=== PATIENT | female | born 2000 | race Hispanic/Latino ===

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

== ENCOUNTER 2025-09-16 12:40 | Emergency (ER) | payer BC ==
[~2025-09-16] VITALS: Ht 152.4 cm; Wt 99.8 kg
[2025-09-16 12:45] VITALS: TEMP 98.8
--- NOTE | 2025-09-16 12:53 | ERN ---
ED Note History of Present Illness Stated Complaint: N/V Chief Complaint: Nausea,Vomiting,Diarrhea Time Seen by MD: 12:45 Dictation: IN HIS A 25-YEAR-OLD FEMALE HERE WITH HER MOTHER WITH COMPLAINTS OF GENERALIZED BODY ACHES NAUSEA VOMITING ONSET TWO DAYS PRIOR TO ARRIVAL. SHE IS ALSO COMPLAINING OF REDNESS TO HER BILATERAL ELBOWS SAME AMOUNT OF TIME. SHE STATES SHE IS HAVING MILD ABDOMINAL CRAMPING AND STATES SHE COULD NOT BE . SHE STATES SHE DOES HAVE A HISTORY OF MIGRAINE HEADACHES. Allergies: Coded Allergies: No Known Drug Allergies (Unverified Allergy, Unknown, 12/09/18) Home Meds Active Scripts Sucralfate (Carafate Susp) 1 Gm/10 Ml Susp, 1 GM PO Q6H for 30 Days, #600 ML Prov:JETHRO DUMONT Jr., MD 12/10/18 Pantoprazole Sodium (Protonix) 40 Mg Tablet.dr, 40 MG PO DAILY for 30 Days, #30 TAB Prov:JETHRO DUMONT Jr., MD 12/10/18 Metoclopramide HCl (Reglan) 5 Mg Tab, 5 MG PO QID for 15 Days, #60 TAB Prov:JETHRO DUMONT Jr., MD 12/10/18 Past Medical History Past Medical History: Migraines Surgical History: None RN Note Reviewed/Agreed w/PFSH: Yes Review of System Dictation CONSTITUTIONAL: NEGATIVE EXCEPT FOR HPI FEVER CHILLS WITH BODY ACHES HEAD/FACE: NEGATIVE EXCEPT FOR HPI EENT: NEGATIVE EXCEPT FOR HPI SORE THROAT RESPIRATORY: NEGATIVE EXCEPT FOR HPI GASTROINTESTINAL/ABDOMINAL: NEGATIVE EXCEPT FOR HPI NAUSEA VOMITING GENITOURINARY: NEGATIVE EXCEPT FOR HPI MUSCULOSKELETAL: NEGATIVE EXCEPT FOR HPI INTEGUMENTARY: NEGATIVE EXCEPT FOR HPI NEUROLOGICAL/PSYCH: NEGATIVE EXCEPT FOR HPI HEMATOLOGIC/LYMPHATIC: NEGATIVE EXCEPT FOR HPI ALL SYSTEMS NEGATIVE, EXCEPT NOTED ABOVE. 13 POINT REVIEW OF SYSTEMS ASSESSED AND ALL NEGATIVE EXCEPT FOR ABOVE. Initial Vital Sign VS Vital Signs Date Time Temp Pulse Resp B/P (MAP) Pulse Ox O2 Delivery O2 Flow Rate FiO2 09/16/25 12:45 98.8 91 18 140/84 99 Physical Exam Dictation VITAL SIGNS REVIEWED GENERAL APPEARANCE: ALERT, ORIENTED X 3, MILD ACUTE DISTRESS, WELL DEVELOPED, NOURISHED. OBESE HEAD AND FACE: NON-TRAUMATIC. EYES: PERRL, PINK CONJUNCTIVAS, EYELID NO TRAUMA, ANTERIOR CHAMBER WITH ARCUS SENILIS. EARS: PINNAS INTACT AND NO SIGNS OF TRAUMA OR ERYTHEMA EAR CANALS CLEAR AND NO DISCHARGE TM NO ERYTHEMA NOSE: NO DISCHARGE, NO BLEEDING. OROPHARYNX: MOUTH NORMAL, TONGUE PINK, PHARYNX CLEAR,NO ERYTHEMA, TONSILS NO EXUDATES, NO ABSCESSES NOTED, MUCOUS MEMBRANE MOIST NECK: SUPPLE, NON-TENDER, NO THYROMEGALY, NO MASSES, NO JVD, NO BRUITS BREAST:DEFERRED CHEST:NO TENDERNESS, NO CREPITUS, NO PARADOXICAL MOVEMENT, NO RETRACTIONS LUNGS:CLEAR, WELL-VENTILATED, SYMMETRIC, NO RALES, NO WHEEZING, NO RHONCHI, NO STRIDOR, GOOD BREATH SOUNDS BILATERALLY HEART: REGULAR RATE, REGULAR RHYTHM, NO MURMUR, NO GALLOPS VASCULAR: NO PERIPHERAL EDEMA, ABDOMEN: SOFT, POSITIVE BOWEL SOUNDS, NONDISTENDED, NO GUARDING, NONTENDER, NO REBOUND, NO MASSES NO HEPATOMEGALY, NO SPLENOMEGALY, NO NICOLAS'S SIGN, NO HERNIAS. RECTAL: DEFERRED GENITAL: DEFERRED NEUROLOGICAL: NORMAL SPEECH, MOTOR FUNCTION INTACT, SENSORY FUNCTION INTACT MUSCULOSKELETAL: NECK NONTENDER, FULL RANGE OF MOTION, BACK NONTENDER, FULL RANGE OF MOTION, EXTREMITIES: NONTENDER, FULL RANGE OF MOTION SKIN: COLOR PINK, DRY, NO TURGOR, NO RASH, NO LACERATIONS, NO ABRASIONS, NO CONTUSIONS. LYMPHATIC: DEFERRED Results (Laboratory/Radiology) Laboratory/Radiology Laboratory Tests Test 09/16/25 12:51 09/16/25 12:57 09/16/25 13:15 Influenza Type A Antigen Negative For Type A Influenza Type B Antigen Negative For Type B SARS-CoV-2 Antigen (Rapid) PRESUMPTIVE NEGATIVE Group A Streptococcus Rapid negative (NEGATIVE) White Blood Count 18.1 K/uL (4.8-10.8) H Red Blood Count 5.33 MIL/uL (4.00-5.50) Hemoglobin 11.4 g/dL (12.0-16.0) L Hematocrit 36.2 % (36-48) Mean Corpuscular Volume 67.9 fL (79-99) L Mean Corpuscular Hemoglobin 21.4 pg (27.0-33.0) L Mean Corpuscular Hemoglobin Concent 31.5 g/dL (32.0-36.0) L Red Cell Distribution Width 18.1 % (11.0-15.5) H Platelet Count 537 K/uL (130-400) H Mean Platelet Volume 8.8 fL (7.5-10.5) Immature Granulocyte % (Auto) 0.4 % (0-1) Neutrophils (%) (Auto) 77.8 % (40.0-77.0) H Lymphocytes (%) (Auto) 14.5 % (21.0-51.0) L Monocytes (%) (Auto) 7.0 % (3.0-13.0) Eosinophils (%) (Auto) 0.1 % (0.0-8.0) Basophils (%) (Auto) 0.2 % (0.0-5.0) Neutrophils # (Auto) 14.1 K/uL (1.8-7.7) H Lymphocytes # (Auto) 2.6 K/uL (1.0-4.8) Monocytes # (Auto) 1.3 K/uL (0.1-1.0) H Eosinophils # (Auto) 0.02 K/uL (0.00-0.70) Basophils # (Auto) 0.03 K/uL (0.00-0.20) Absolute Immature Granulocyte (auto 0.08 K/uL (0-1) Nucleated Red Blood Cells 0.0 % (0.0-0.19) Sodium Level 132 mmol/L (136-145) L Potassium Level 2.7 mmol/L (3.5-5.1) *L Chloride Level 94 mmol/L (101-111) L Carbon Dioxide Level 25 mmol/L (21-32) Blood Urea Nitrogen 15 mg/dL (7-18) Creatinine 0.8 mg/dL (0.5-1.0) Glomerular Filtration Rate Calc 105 mL/min (>90) Random Glucose 117 mg/dL (70-105) H Total Calcium 9.5 mg/dL (8.5-10.1) Urine Color YELLOW (YELLOW) Urine Appearance CLEAR (CLEAR) Urine pH 6.5 (5.0-8.0) Urine Specific [place] 1.032 (1.001-1.031) Urine Protein 70 mg/dL (NEGATIVE) H Urine Glucose (UA) NEGATIVE mg/dL (NEGATIVE) Urine Ketones 20 mg/dL (NEGATIVE) H Urine Occult Blood +- (TRACE) (NEGATIVE) H Urine Nitrate NEGATIVE (NEGATIVE) Urine Bilirubin NEGATIVE mg/dL (NEGATIVE) Urine Urobilinogen 0.2 mg/dL (0.2-1.0) Urine Leukocyte Esterase NEGATIVE Bon/uL Urine HCG, Qualitative NEGATIVE (NEGATIVE) Urine Opiates Screen NEGATIVE (NEGATIVE) Urine Barbiturates Screen NEGATIVE (NEGATIVE) Urine Phencyclidine Screen NEGATIVE (NEGATIVE) Urine Amphetamines Screen NEGATIVE (NEGATIVE) Urine Benzodiazepines Screen NEGATIVE (NEGATIVE) Urine Cocaine Screen NEGATIVE (NEGATIVE) Urine Marijuana (THC) Screen POSITIVE (NEGATIVE) H Labs Reviewed?: Yes ED Course ED Course Orders Procedure Category Date Status Time Cbc With Differential LAB 09/16/25 In Process 12:49 ,Urine Test LAB 09/16/25 In Process 12:49 Urinalysis Profile LAB 09/16/25 In Process 12:49 Basic Metabolic Panel LAB 09/16/25 Complete 12:49 Covid19 (Sars Antigen LAB 09/16/25 Complete Rapid) 12:49 Influenza Type A & B, LAB 09/16/25 Complete Rapid 12:49 Rapid (Group A Strep) LAB 09/16/25 Complete 12:49 Ondansetron Odt 4mg PHA 09/16/25 Complete Tab (Zofran 4mg Odt) 13:00 Drug Screen Urine LAB 09/16/25 Complete 12:57 Potassium Bicarb/Cit PHA 09/16/25 Complete Ac 25meq (K-Lyte Ta 13:30 Promethazine Hcl PHA 09/16/25 Verified (Phenergan) 14:00 Current Medications Medications (Trade) Dose Ordered Sig/Jaret Route PRN Reason Start Time Stop Time Status Last Admin Dose Admin Ondansetron HCl (zoFRAN 4MG ODT) 4 mg ONCE ONCE SL 09/16/25 13:00 09/16/25 13:01 DC 09/16/25 13:03 Potassium Bicarbonate (K-Lyte Tablet Eff 25 Meq Tablet.eff) 50 meq ONCE ONCE PO 09/16/25 13:30 09/16/25 13:31 DC Vital Signs Date Time Temp Pulse Resp B/P (MAP) Pulse Ox O2 Delivery O2 Flow Rate FiO2 09/16/25 12:45 98.8 91 18 140/84 99 1350/PATIENT NOW STATING SHE THREW UP THE ZOFRAN SUBLINGUAL. I WE WILL PRESCRIBE [id number] MG IM PATIENT DISCHARGED HOME WITH HER MOTHER. PATIENT STATES SHE SAW HER PRIMARY CARE DOCTOR LAST WEEK WHO TOLD HER HER POTASSIUM WAS LOW IN HER WHITE COUNT WAS ELEVATED SHE TOLD THE MOTHER THAT SHE WAS UNABLE TO DISASTER RECOVERY CONSULTANT THE MEDICATIONS BECAUSE THEY DID NOT HAVE THE POTASSIUM AT [facility]. I TOLD PATIENT AND MOTHER I WE WILL GIVE WRITTEN PRESCRIPTIONS. ADDITIONALLY, [place] [id number] AND I STRONGLY BELIEVE THAT THIS IS A REACTIVE LEUKOCYTOSIS SECONDARY TO HER VOMITING. SHE STATES SHE SEES DR. BRIONES OUT OF [facility] FOR HER MIGRAINES IN HIS ALREADY BEEN WARNED THAT IF SHE DID NOT STOP SMOKING, DR. PARADA SAID SHE WOULD NOT BE TREATING HER MIGRAINE HEADACHES PATIENT STATES THAT SHE HAS ONLY BEEN AROUND PEOPLE WHO SMOKE MARIJUANA, THAT SHE STOPPED SMOKING YEARS AGO Medical Decision Making MDM MDM: DIFFERENTIAL DIAGNOSIS: CANNABIS ABUSE SYNDROME/ELECTROLYTE IMBALANCE/DEHYDRATION//UTI RATIONALE: TESTS CONSIDERED AND ORDERED SECONDARY TO SHARED DECISION MAKING INCLUDE: LABS PREVIOUS OUTSIDE RECORDS REVIEWED: OLD ER VISITS. RISK OF COMPLICATION AND/OR MORBIDITY OR MORTALITY OF PATIENT MANAGEMENT: NONE MEDICATIONS-PER MEDICATION RECONCILIATION NEED FOR HOSPITALIZATION: PATIENT DOES NOT MEET CRITERIA FOR HOSPITALIZATION. NONE NEED FOR EMERGENCY MAJOR/MINOR SURGERY: NO THERE ARE NO SOCIAL CONCERNS WITH THIS PATIENT. HAS A MARIJUANA USER, STATES THAT IS 2ND HAND SMOKING BECAUSE SHE IS AROUND HER FRIENDS AND SHE INHALES FROM THEM ON-CALL. PRESCRIPTION DRUG MANAGEMENT ZOFRAN ODT/K-DUR PRESCRIPTIONS WILL INCLUDE SYMPTOMATIC CARE PATIENT'S PRIOR EXTERNAL MEDICAL RECORDS FROM OTHER ER VISITS WERE REVIEWED BY ME INDICATED. PRIOR TESTING AND RESULTS FROM PREVIOUS VISITS WERE REVIEWED. PRIOR TESTS WERE TAKEN INTO ACCOUNT WITH MEDICAL DECISION MAKING AND RESOURCE UTILIZATION, INDEPENDENT HISTORIAN/HISTORIANS WERE USED TO OBTAIN COMPLETE MEDICAL HISTORY. I INDEPENDENTLY INTERPRETED THE TEST THAT WERE PERFORMED, RESULTS WERE REVIEWED BY ME AND CONSIDERED FINDINGS ON RADIOLOGY IF ORDERED. MEDICAL MANAGEMENT AND EXAMINATION INTERPRETATION DISCUSSIONS WERE HAD BY ME WITH OTHER QUALIFIED HEALTHCARE PROFESSIONALS INDICATED FOR THE PATIENT'S CARE. DX & DISP Disposition: Discharge Departure Impression: Primary Impression: Cannabis hyperemesis syndrome concurrent with and due to cannabis abuse Additional Impressions: Hypokalemia, Hyponatremia, Nausea & vomiting, Leukocytosis Condition: Stable Scripts Dicyclomine HCl (Bentyl) 20 Mg Tab 20 MG PO Q6HPRN for ABDOMINAL CRAMPING, #30 TAB Prov: CATHERINE XIAO 09/16/ Potassium Bicarbonate/Cit AC (Klor-Con-Ef 25 Meq Tab Eff) 25 Meq Tablet.eff 25 MEQ PO BID for 5 Days, #10 TAB.EFF Prov: CATHERINE XIAOP 09/16/25 Ondansetron (Ondansetron Odt) 4 Mg Tab.rapdis 4 MG PO Q6HPRN PRN for nausea, #16 TAB 0 Refills Prov: CATHERINE XIAO [facility] 09/16/25 Additional Instructions: FOLLOW-UP WITH PRIMARY CARE PROVIDER IN 1 TO 2 DAYS. TAKE MEDICATIONS DIRECTED HERE IN THE EMERGENCY ROOM. OKAY TO CONTINUE HOME MEDICATIONS UNLESS OTHERWISE DISCUSSED DURING YOUR VISIT IN THE EMERGENCY ROOM TODAY. RETURN TO YOUR NEAREST EMERGENCY ROOM IF SYMPTOMS WORSEN OR IF THERE IS NO IMPROVEMENT. CALL 911 IF YOU NEED IMMEDIATE ASSISTANCE. TAKE TYLENOL OR MOTRIN [id number] NEEDED AND IF NO CONTRAINDICATIONS ARE PRESENT. INCREASE ORAL HYDRATION. A WOUND CULTURE OR URINE CULTURE WAS ORDERED HERE IN THE EMERGENCY ROOM DEPARTMENT PLEASE FOLLOW-UP WITH PRIMARY CARE PROVIDER AND ADVISE THEM TO GET REPEAT PORTS FROM OUR FACILITY. IF YOU HAD ANY ANGELIA WRAP/SPLINTS THAT WERE APPLIED HERE, PLEASE DO NOT REMOVE THEM UNTIL YOU SEE YOUR PRIMARY CARE OR SPECIALTY. TAKE POTASSIUM REPLACEMENT DIRECTED TWICE A DAY FOR THE NEXT FIVE DAYS. TAKE POTASSIUM 40 MINUTES AFTER YOU HAD TAKE ZOFRAN ODT. STOP ALL MARIJUANA USE OR EXPOSURE TO PEOPLE WHO WERE SMOKING MARIJUANA. CALL PROGRAM MANUFACTURING LEADER FOR AN APPOINTMENT IN THE NEXT 1-2 DAYS. Referrals: JOSE MIJARES MD (PCP) SHWETA DALY MD I have reviewed the case, and I agree with, Diagnosis and Plan CATHERINE XIAO Pratik [facility] Sep 16, 2025 12:53
[2025-09-16 13:03] LABS: IMMATURE GRANULOCYTE ABSOLUTE 0.08 K/uL (0-1); NUCLEATED RED BLOOD CELLS 0.0 % (0.0-0.19); PLATELET COUNT (AUTO) 537 K/uL (130-400); RED BLOOD CELL COUNT(AUTO) 5.33 MIL/uL (4.00-5.50); RED CELL DISTRIBUTION WIDTH 18.1 % (11.0-15.5); WHITE BLOOD COUNT (AUTO) 18.1 K/uL (4.8-10.8)
[2025-09-16 13:11] LABS: CREATININE 0.8 mg/dL (0.5-1.0); GLOMERULAR FILTR. RATE CALC 105.0 mL/min (>90); GLUCOSE,RANDOM 117.0 mg/dL (70-105); SODIUM SERUM 132.0 mmol/L (136-145); UREA NITROGEN, BLOOD 15.0 mg/dL (7-18)
[2025-09-16 13:12] LABS: RAPID GROUP A STREP negative (NEGATIVE)
[2025-09-16 13:21] LABS: COVID19 (SARS ANTIGEN RAPID) PRESUMPTIVE NEGATIVE (NEGATIVE); INFLUENZA TYPE A Negative For Type A (NEGATIVE); INFLUENZA TYPE B Negative For Type B (NEGATIVE)
[2025-09-16 13:25] LABS: APPEARANCE,URINE CLEAR (CLEAR); GLUCOSE, URINE (UA) NEGATIVE (NEGATIVE); LEUKOCYTE ESTERASE ,URINE NEGATIVE Leu/uL (NEGATIVE); NITRATE,URINE NEGATIVE (NEGATIVE); OCCULT BLOOD,URINE +- (TRACE) (NEGATIVE)
[2025-09-16 13:29] LABS: HCG,QUALITATIVE URINE NEGATIVE (NEGATIVE)
[2025-09-16 13:34] LABS: AMPHET/METH SCREEN,URINE NEGATIVE (NEGATIVE); BARBITURATE SCREEN, URINE NEGATIVE (NEGATIVE); CANNABINOID SCREEN,URINE POSITIVE (NEGATIVE); COCAINE SCREEN,URINE NEGATIVE (NEGATIVE)
[2025-09-16 13:36] LABS: ADD UA MICROSCOPIC YES
[2025-09-16 13:55] VITALS: BP 138/78; PULSE 84; RESP 16; O2SAT 97
[2025-09-16 13:55] LABS: SQUAMOUS EPITHELIAL CELL,UR RARE /HPF (0-2)
[2025-09-16] MEDS ORDERED: POTA25TA41 PO (13:56)
[2025-09-16] MEDS ORDERED: DICY20TA2 PO (13:56)
[2025-09-16] MEDS ORDERED: ONDA-243 PO (13:56)
[2025-09-16] MEDS: PROMETHAZINE HCL 25 MG/ML 1ML AMPULE IM ONE (13:58)
--- NOTE | 2025-09-16 14:23 | NUR ---
PT ASKED WHAT WILL BE DONE ABOUT REDNESS TO ELBOWS, PER CATHERINE STATISTICIAN THEORETICAL, PT MAY APPLY OVER THE COUNTER HYDROCORTIZONE CREAM AND FOLLOW UP WITH PCP. NOTIFIED PT AND MOTHER, VERBALIZED UNDERSTANDING.
== END 2025-09-16 14:14 | disposition home or self-care (01) ==
LOC: EDH 12:40
DX: R11.16 Cannabis hyperemesis syndrome (principal); F12.10 Cannabis abuse, uncomplicated; E87.6 Hypokalemia; E87.1 Hypo-osmolality and hyponatremia; D72.829 Elevated white blood cell count, unspecified; G43.909 Migraine, unspecified, not intractable, without status migrainosus; Z20.822 Contact with and (suspected) exposure to COVID-19; Z79.899 Other long term (current) drug therapy
CPT/HCPCS: 99284; 87426; 80048; 80305; 85025; 87880; 87804 ×2; 81025; 36415; 96372; 81001; J2550